=== PATIENT | male | born 1960 | race African-American/Black ===

== ENCOUNTER 2018-11-25 18:46 | Inpatient (IN) ==
[2018-11-25] MEDS ORDERED: TYLENOL PO ONE (19:02)
[2018-11-25] MEDS ORDERED: NS 1,000 ML IV ONE (19:24)
--- NOTE | 2018-11-25 19:28 | PROVIDER DOCUMENTATION ---
HPI-Fever - General Chief Complaint: Return/Recheck Stated Complaint: FEVER Time Seen by Provider: 11/25/18 19:20 Source: patient Allergies/Adverse Reactions: Patient Allergies Allergy/AdvReac Type Severity Reaction Status Date / Time No Known Allergies Allergy Verified 10/12/15 21:56 Home Medications: Home Medication List Medication Instructions Recorded Confirmed Last Taken Type Levofloxacin [Levaquin] 750 mg PO DAILY #10 tab 11/23/18 Unknown Rx - History of Present Illness-Fever Nature of Presenting Problem: 58 YOM PRESENTS PER MD REQUEST FOR + BC ON HIS RECENT VISIT ON 11/25 (E.COLI) HE WAS SEEN AND TREATED FOR A UTI. HE REPORTS HE IS HAVING CONTINUED FEVER, CHILLS AND FLANK PAIN AT THIS TIME. HE DENIES SOB, CP, N/V/D. Fever Severity/Quality: reports: greater than 100.5 F Onset/Duration: reports: 4 days ago Timing: reports: still present Severity: reports: moderate Context: reports: other (KNOWN UTI) Recent Illness?: reports: UTI Fever Therapy [employer] FINISHING HAND: Initiated Ibuprofen, Initiated Tylenol Cognitive Baseline: alert, oriented x3 Modifying Factors: improves with: nothing Associated Symptoms: reports: fever/chills Similar Symptoms Previously?: No Recently seen or treated by another doctor?: No - Glascow Coma Score Best Eye Response (Dixon): (4) open spontaneously Best Verbal Response (Cely): (5) oriented Best Motor Response (Dixon): (6) obeys commands Review of Systems - Adult - REVIEW OF SYSTEMS - ADULT Constitutional: reports: chills, fever. denies: no symptoms reported, see HPI, fatique, night sweats, weight gain, weight loss, other Eyes: reports: no symptoms reported. denies: see HPI, discharge, dry eyes, decreased vision, blurred vision, double vision, eye pain, redness, other Ears, Nose, Mouth & Throat: reports: no symptoms reported. denies: see HPI, ear discharge, ear pain, hearing loss, tinnitus, epistaxis, sinus problem, nose pain, loose teeth, mouth/dental pain, mouth swelling, hoarseness, throat pain, throat swelling, other Cardiovascular: reports: no symptoms reported. denies: see HPI, chest pain, edema, heart murmur, irregular heart rate, orthopnea, palpitations, poor circulation, PND, syncope, other Respiratory: reports: no symptoms reported. denies: see HPI, chronic cough, cough, dyspnea on exertion, excessive sputum production, hemoptysis, pleurisy, shortness of breath, wheezing, other Gastrointestinal: reports: no symptoms reported. denies: see HPI, abdominal pain, hematemesis, constipation, diarrhea, difficulty swallowing, frequent hear tburn, nausea, poor appetite, rectal bleeding, vomiting, other Genitourinary: reports: see HPI, flank pain. denies: no symptoms reported, dysuria, discharge, frequency, frequent UTI's, hematuria, hesitency, incontinence, urinary retention, urgency, other Musculoskeletal: reports: no symptoms reported. denies: see HPI, bone pain, back pain, frequent leg cramps, joint pain, joint swelling, muscle aches, muscle weakness, neck pain, other Integumentary: reports: no symptoms reported. denies: see HPI, hives, hair loss, itching, mole changes, nail changes, rash, skin sores/ulcer, skin thickening, other Neurological: reports: no symptoms reported. denies: see HPI, ataxia, dizziness/vertigo, headache/migraines, loss of balance, numbness, paresthesia, seizure, slurred speech, syncope, tremors, other Psychiatric: reports: no symptoms reported. denies: see HPI, anxiety, anti- depressant use, alcohol/drug dependence, depression, emotional problems, insomnia, panic attacks, suicidal thoughts, other Endocrine: reports: no symptoms reported. denies: see HPI, change in skin pigment, excessive sweating, goiter, cold intolerance, heat intolerance, increased hunger, increased thirst, polyuria, other Hematologic/Lymphatic: reports: no symptoms reported. denies: see HPI, blood clots, easy bruising, low blood count, lymphedema, prolonged bleeding, swollen lymph nodes, transfusions, other Allergic/Immunologic: reports: no symptoms reported. denies: see HPI, allergic reactions, allergic rhinitis, asthma, eczema, food allergy, frequent infections, hay fever, hives, positive PPD, urticaria, other Past History - Adult - PAST MEDICAL HISTORY-ADULT Review of Records: reports: Old Records Reviewed, Nursing Assessment Review, Social history reviewed & non-contributory. Major Childhood Illnesses: reports: denies history Other Conditions: reports: denies history - PRIOR SURGERIES/PROCEDURES Surgical/Procedure History: reports: none - PRIOR HOSPITALIZATIONS Prior Hospitalizations: reports: none - IMMUNIZATION STATUS Childhood Immunizations: See Nurse Assessment Flu Vaccine: See Nurse Assessment - FAMILY HISTORY Family History: reviewed, not pertinent Physical Exam-General - PHYSICAL EXAM-ADULT Initial Vital Signs Reviewed: Yes - CONSTITUTIONAL General Appearance: appears well, alert, no apparent distress - EYES Eyes: PERRL/EOMI - HEAD, EARS, NOSE, MOUTH & THROAT HENMT: normocephalic/atraumatic, moist mucous membranes, normal ENT inspection - NECK Neck: non-tender, full range of motion, supple - RESPIRATORY Respiratory: chest non-tender, lungs clear, normal breath sounds, no pleuratic chest pain, no respiratory distress, no accessory muscle use - CARDIOVASCULAR Cardiovascular: normal peripheral pulses, regular rate, rhythm, no edema, no gallop, no JVD, no murmur - GASTROINTESTINAL (ABDOMEN) Abdominal Exam: normal bowel sounds, non tender, soft - LYMPHATIC Lymphatic: no adenopathy - MUSCULOSKELETAL Back Exam: normal inspection, no vertebral tenderness, CVA tenderness Extremity: normal range of motion, non-tender, normal gait - SKIN Integumentary: normal color, normal turgor, warm/dry - NEUROLOGIC Neurologic: grossly normal - PSYCHIATRIC Psych/Mental Status: normal mood/affect, oriented x 3 Progress - PLAN OF CARE/RESULTS Progress/Plan/Lab Results: Vital Signs - 8 hr 11/25/18 18:58 Temperature 100.6 F H Pulse Rate 79 Respiratory Rate 18 Blood Pressure 177/99 O2 Sat by Pulse Oximetry 97 Laboratory Results - last 24 hr 11/25/18 11/25/18 11/25/18 20:00 20:00 20:00 WBC 5.51 RBC 4.45 L Hgb 12.7 L Hct 37.1 L MCV 83.4 MCH 28.5 MCHC 34.2 RDW Std Deviation 14.0 Plt Count 146 MPV 11.6 H Immature Gran % (Auto) 0.9 H Neut % (Auto) 78.2 H Lymph % (Auto) 7.6 L Barbour % (Auto) 13.1 H Eos % (Auto) 0.0 Baso % (Auto) 0.2 Immature Gran # (Auto) 0.05 H Neut # (Auto) 4.31 Lymph # (Auto) 0.42 L Barbour # (Auto) 0.72 H Eos # (Auto) 0.00 Baso # (Auto) 0.01 PT INR PTT (Actin FS) Sodium 129 L Potassium 3.7 Chloride 92 L Carbon Dioxide 25 Anion Gap 12 BUN 13 Creatinine 0.8 Estimated GFR/1.73 m2 > 60 BUN/Creatinine Ratio 16 Glucose 92 Calculated Osmolality 259 Calcium 8.5 L Magnesium 1.8 Plasma Lactate Urine Source Urine Color Urine Clarity Urine pH Ur Specific Eldridge Urine Protein Urine Ketones Urine Blood Urine Nitrite Urine Bilirubin Urine Urobilinogen Urine Microscopic RBC Urine WBC Urine Microscopic WBC Ur Epithelial Cells Urine Crystals Urine Bacteria Urine Casts Urine Yeast Urine Glucose 11/25/18 11/25/18 11/25/18 20:00 20:00 20:19 WBC RBC Hgb Hct MCV MCH MCHC RDW Std Deviation Plt Count MPV Immature Gran % (Auto) Neut % (Auto) Lymph % (Auto) Barbour % (Auto) Eos % (Auto) Baso % (Auto) Immature Gran # (Auto) Neut # (Auto) Lymph # (Auto) Barbour # (Auto) Eos # (Auto) Baso # (Auto) PT 12.4 INR 0.88 PTT (Actin FS) 29.7 Sodium Potassium Chloride Carbon Dioxide Anion Gap BUN Creatinine Estimated GFR/1.73 m2 BUN/Creatinine Ratio Glucose Calculated Osmolality Calcium Magnesium Plasma Lactate 1.1 Urine Source CLEAN CATCH Urine Color YELLOW Urine Clarity CLEAR Urine pH 5.0 Ur Specific Eldridge 1.010 Urine Protein 1+(30 mg/dL) A Urine Ketones 2+(Moderate) A Urine Blood 2+ A Urine Nitrite NEGATIVE Urine Bilirubin NEGATIVE Urine Urobilinogen 4 Urine Microscopic RBC <10 Urine WBC TRACE A Urine Microscopic WBC <10 Ur Epithelial Cells >10 A Urine Crystals NONE SEEN Urine Bacteria 2+ Urine Casts NONE SEEN Urine Yeast NONE SEEN Urine Glucose NEGATIVE Orders Category Date Time Status Admit - [facility] Routine AdmDCTranf 11/25/18 20:54 Active Activity - Up Ad Yvette ORDERED Care 11/25/18 20:54 Active Neurological Check PRN Care 11/25/18 20:54 Active Saline Loc DIRECTED Care 11/25/18 20:54 Active Saline Loc NOW Care 11/25/18 19:24 Active Vital Signs Order ROUTINE Care 11/25/18 20:54 Active Regular Diet Diet 11/25/18 20:56 Active BASIC METABOLIC PANEL [CHEM] Stat Lab 11/25/18 20:00 Completed BC [BLOOD CULTURE] [BLDCUL] Stat Lab 11/25/18 20:00 Ordered CBC WITH ELECTRONIC DIFF [HEME] Stat Lab 11/25/18 20:00 Completed LACTATE, PLASMA [CHEM] Stat Lab 11/25/18 20:19 Completed MAGNESIUM [CHEM] Stat Lab 11/25/18 20:00 Completed PROTIME WITH INR [COAG] Stat Lab 11/25/18 20:00 Completed PTT [COAG] Stat Lab 11/25/18 20:00 Completed UA NIMS W/REFLEX CULT PL [URINALYSIS] Stat Lab 11/25/18 20:00 Completed URINE CULTURE [RM] Routine Lab 11/25/18 20:40 Ordered 0.9% Sodium Chloride Inj [Ns] 1,000 ml Med 11/25/18 19:24 Discontinued IV 999 mls/hr Acetaminophen [Tylenol] Med 11/25/18 19:02 Discontinued 1,000 mg PO NOW ONE Acetaminophen [Tylenol] Med 11/25/18 20:54 Ordered 650 mg PO Q6H PRN PRN CefTRIAXONE [Rocephin] 2 gm Med 11/25/18 20:18 Discontinued 0.9% Sodium Chloride Inj [Ns] 50 ml IV NOW Ondansetron [Zofran] Med 11/25/18 20:54 Ordered 4 mg IV Q4H PRN PRN Piperacillin/Tazobactam [Zosyn] 4.5 gm Med 11/25/18 20:56 Active 0.9% Sodium Chloride Inj [Ns] 100 ml IV NOW Transfer/Admit Order [TRANSFER] Routine Transfer 11/25/18 20:56 Ordered Result Diagrams: 11/25/18 20:00 11/25/18 20:00 - CONSULTS/PCP/HOSPITALIST Notification #1 *Consult/PCP/Hospitalist*: CHEATAM Time Discussed: 20:57 Reason/Comments: BEGIN ZOSYN Consult Disposition: Admit Departure - Departure Date of Disposition Decision: 11/25/18 Time of Disposition Decision: 20:58 DIAGNOSIS: UTI (urinary tract infection), Positive blood culture Disposition: ADMITTED INPATIENT 09 Certified Medical Emergency: Emergent Condition: Stable Referrals and Follow-Ups: Oscar Mcbride MD [Primary Care Provider] - - Critical Care Note This patient required my direct & personal management of CC.: No Attestation - Physician/ LUC Attestation Patient care was provided by Advanced Practice Provider:: Yes Advanced Practice Provider:: Rebeca Buchanan Advanced Practice Provider documentation review:: The Mid-level provider documentation, treatment plan and medical decision making was reviewed by the matilde hudson who agrees with all treatment and medical decision making by the MLP. The physician spent face to face time with patient:: No Advanced Practice Provider documentation review:: Supervising physician onsite and consulted in the evaluation and care of this patient. The physician did not have a face to face encounter with the patient.
[2018-11-25] MEDS ORDERED: ROCEPHIN 2 GM in NS 50 ML IV ONE (20:18)
[2018-11-25 20:21] LABS: BASO# 0.01 X1000 (0.0-0.2); BASO% 0.2 % (0.0-0.8); HEMATOCRIT 37.1 % (42.0-52.0); HEMOGLOBIN 12.7 g/dL (14.0-18.0); IMM GRAN# 0.05 X1000 (0.0-0.04); IMM GRAN% 0.9 % (0.0-0.5); LYMPH# 0.42 X1000 (1.2-3.4); LYMPH% 7.6 % (20.5-51.1); MCH 28.5 PG (27-31); MCHC 34.2 g/dL (33-37); MCV 83.4 FL (81-99); MONO# 0.72 X1000 (0.11-0.59); MONO% 13.1 % (1.7-9.3); MPV 11.6 FL (7.4-10.4); NEUT# 4.31 X1000 (1.4-6.5); NEUT% 78.2 % (42.2-75.2); PLT 146 X1000 (130-400); RBC 4.45 XMIL (4.7-6.1); WBC 5.51 X1000 (4.8-10.8)
[2018-11-25 20:28] LABS: AGAP 12; BUN 13 mg/dL (8-22); CALCIUM 8.5 mg/dL (8.8-10.2); CHLORIDE 92 mmol/L (98-107); COSMO 259; CREATININE 0.8 mg/dL (0.7-1.2); ESTIMATED GFR > 60; GLUCOSE 92 mg/dL (70-104); POTASSIUM 3.7 mmol/L (3.5-5.1); SODIUM 129 mmol/L (136-145); TCO2 25 mmol/L (25-35)
[2018-11-25 20:34] LABS: BILIRUBIN URINE NEGATIVE (NEGATIVE); BLOOD URINE 2+ (NEGATIVE); CLARITY CLEAR (CLEAR); COLOR YELLOW; GLUCOSE URINE NEGATIVE (NEGATIVE); KETONE URINE 2+(Moderate) mg/dL (NEGATIVE); LEUKOCYTES URINE TRACE (NEGATIVE); NITRITE URINE NEGATIVE (NEGATIVE); PROTEIN URINE 1+(30 mg/dL) mg/dL (NEGATIVE); UROBILINOGEN URINE 4 mg/dL
[2018-11-25 20:35] LABS: INR 0.88; PROTIME 12.4 Seconds (11.0-16.0)
[2018-11-25 20:36] LABS: PTT 29.7 Seconds (22.3-41.8)
[2018-11-25 20:38] LABS: URINE SOURCE CLEAN CATCH
[2018-11-25 20:40] LABS: URINE BACTERIA 2+ /HFP; URINE CAST NONE SEEN /LPF; URINE CRYSTAL NONE SEEN /HPF; URINE EPITHELIAL CELLS >10 /HPF (<10); URINE RBC <10 /HPF (<10); URINE WBC <10 /HPF (<10); URINE YEAST NONE SEEN /HPF
[2018-11-25] MEDS ORDERED: ZOFRAN IV PRN (20:54)
[2018-11-25] MEDS ORDERED: TYLENOL PO PRN (20:54)
[2018-11-25] MEDS ORDERED: ZOSYN 4.5 GM in NS 100 ML IV ONE (20:56)
[2018-11-26] MEDS: ZOSYN 3.375 GM in NS 50 ML IV SCH ×4 (03:14→21:22)
--- NOTE | 2018-11-26 14:17 | HISTORY AND PHYSICAL ---
CHIEF COMPLAINT: Fever. HISTORY OF PRESENT ILLNESS: Patient is a very pleasant 58-year-old male who actually presented to the ER couple days ago, was diagnosed with urinary tract infection, placed on Levaquin and discharged home. Since going home he has continued to have fever for the next 2 days. He was called yesterday and returned late yesterday evening to the ER. He was called back because he had a blood culture positive for E coli that interestingly is highly sensitive to Levaquin. ALLERGIES: No known drug allergies. MEDICATIONS: He is on no chronic prescription medications. He is currently on Levaquin from his recent ER visit. REVIEW OF SYSTEMS: As noted above positive fevers, chills, has felt mildly achy, has had increased urinary frequency for the past couple days but typically he denies any urinary frequency, urgency. States he gets up twice a night to go to the restroom. Does not have any BPH symptoms during the day. Denies headaches, blurred vision, change in vision, denies focalized numbness, tingling, weakness. Denies dysuria, urinary frequency, typically denies constipation, melena, hematochezia. Denies any skin rashes, weight loss or weight gain. FAMILY HISTORY: Noncontributory. SOCIAL HISTORY: He is , is employed. Denies illicit substance use. OBJECTIVE: T current 100.6, pulse 79, respiratory 18, BP 177/99, saturation 97% on room air.General: Patient is awake, alert, he is very pleasant. He is in no distress. HEENT: Normocephalic. Neck: Supple. CV: Regular rate. Chest: Clear. Abdomen: Soft. No flank pain appreciable. Extremities: Moves all extremities. Neuro: No changes. ASSESSMENT: 1. Escherichia coli bacteremia. 2. Escherichia coli pyelonephritis. 3. Febrile illness. 4. Hypertension. PLAN: Will continue patient in the hospital. We will start him on Zosyn as he was on Levaquin and we are going to call the lab as his initial Gram stain demonstrated gram-positive cocci and gram-negative rods. Ultimately it only grew E coli. We are going to make sure that the gram- negative arsalan was a contaminant. We will continue to follow. cc: Gallo Ashford MD
[2018-11-27] MEDS: ZOSYN 3.375 GM in NS 50 ML IV SCH ×2 (02:35→09:29)
[2018-11-27 11:36] VITALS: BP 154/96
--- NOTE | 2018-11-28 05:32 | DISCHARGE SUMMARY ---
ADMISSION DATE: 11/26/2018 DISCHARGE DATE: 11/27/2018 DISCHARGE DIAGNOSIS: 1. Escherichia coli pyelonephritis. 2. Escherichia coli bacteremia. 3. Fever. 4. Sepsis, resolved. 5. Mild benign prostatic hypertrophy symptoms. CONSULTATIONS: None. PROCEDURE: None. BRIEF HOSPITAL COURSE: Patient is a 58-year-old male who had actually presented to the hospital a couple of days ago, was placed on Levaquin which I feel is actually appropriate as his E coli is highly sensitive to Levaquin. However, he continued to have fever. When they called him with bacteremia, he came back to the hospital. We did admit him to the hospital just to make sure to get him clear. Thankfully, his fever resolved. On discharge, his T-max is at 100.4. He was eating, drinking, ambulating without any difficulty. He was having no difficulty urinating. DISPOSITION: Patient will be discharged home. As he has no previous surgeries or hardware placed, he will take a total 14 days of Levaquin. His repeat culture is negative thus far. Discussed with him that he needs to continue to follow up with his primary care in 1 to 2 weeks, sooner if symptoms worsen or return. He will continue Levaquin for a total 14 days. He has no other medications. No diet changes were made. Greater than 30 minutes were spent in total care. cc: Gallo Ashford MD
== END 2018-11-27 13:00 | disposition home or self-care (01) | DRG 872 ==
LOC: P.ED 18:46 → P.MEDSURG 11-26 00:31
PROVIDERS: ATTEND Family Medicine
CPT/HCPCS: 80048; 81001; 83605; 83735; 85025; 85610; 85730; 87040; 87088; A9270; J0696; J2543; J7030